=== PATIENT | male | born 1945 | race Caucasian/White ===

== ENCOUNTER 2017-09-13 07:59 | Day surgery (SDC) | payer MEDICARE, BC ==
[2017-09-13] MEDS ORDERED: PROPOFOL 10 MG/ML VIAL IV ONE (08:00)
[2017-09-13] MEDS ORDERED: LIDOCAINE 2% MDV (20MG/ML) 20ML VIAL IV ONE (08:00)
--- NOTE | 2017-09-14 13:50 | Operative Note ---
DATE OF SURGERY: 09/13/2017 OPERATION: COLONOSCOPY to the cecum with cold snare polypectomy x3 and electrocautery snare polypectomy x1. INDICATION: History of adenomatous polyps in the past. The patient returns at this time for surveillance. ANESTHESIA: Intravenous sedation was administered by the department of anesthesiology and included Diprivan titrated to effect. PROCEDURE: Following informed consent from this alert individual including a discussion of the risks and benefits of the procedure and an opportunity for the patient to ask questions, the patient was in the left lateral decubitus position. A digital rectal examination was performed. No abnormalities were noted. The prostate had been surgically removed. Following this, the Olympus [id number] video colonoscope was inserted into the rectum without resistance. The rectal mucosa had a normal appearance with normal folds and distensibility. The colonoscope was advanced up through the colon to the level of the cecum without much difficulty. Throughout the bowel the mucosa appeared normal, the folds were normal, and the bowel was fairly well distensible. The cecum was defined by noting the appendiceal orifice and ileocecal valve. Retroflexion in the cecum was endoscopically unremarkable. The colon preparation was good. In the ascending colon there was a thickened fold where possible lipoma or polyp noted, and this was removed with electrocautery snare polypectomy and suctioned through the endoscope into a collection trap. The transverse colon had a 6 mm polyp noted which was removed with cold snare polypectomy. The descending colon had two 4-5 mm polyps noted each removed with cold snare polypectomy. There were a few diverticula noted in the left colon. No other changes were noted until the rectum was reached. Retroflexion in the rectum revealed small internal hemorrhoids. The endoscope was straightened and removed. The patient tolerated the procedure well and was returned to the recovery area in stable condition. IMPRESSION: 1. Ascending colon thickened fold versus polyp or lipoma removed with electrocautery snare. 2. One transverse colon polyp measuring 6 mm in size removed with cold snare polypectomy. 3. Two 4 mm descending colon polyps removed with cold snare polypectomy. 4. Left colonic diverticulosis. 5. Internal hemorrhoids. RECOMMENDATIONS: The patient was advised he should receive a copy of his pathology report at home in the next 2-3 weeks. If not, he was asked to call my office to review the results of testing today. Further recommendations forthcoming pending those results. Followup will also be with Dr. Mullen. As always, thank you for allowing me to participate in the care of your patient. CC: Hudson RODRIGUEZ
== END 2017-09-13 10:11 | disposition home or self-care (01) ==
LOC: HOP 07:59
PROVIDERS: ATTEND Internal Medicine Gastroenterology
DX: Z86.010 Personal history of colon polyps (principal); Z12.11 Encounter for screening for malignant neoplasm of colon; D12.3 Benign neoplasm of transverse colon; D12.2 Benign neoplasm of ascending colon; D12.4 Benign neoplasm of descending colon; I10 Essential (primary) hypertension; K57.30 Diverticulosis of large intestine without perforation or abscess without bleeding; K64.8 Other hemorrhoids